=== PATIENT | female | born 1955 | race Two or more races ===

== ENCOUNTER 2025-10-08 10:30 | Inpatient (IN) | payer OTHER ==
[~2025-10-08] VITALS: Ht 30.5 cm; Wt 90.7 kg
[2025-10-08] MEDS ORDERED: TOPROL XL25 M1 (14:46)
[2025-10-08] MEDS ORDERED: ARBLI10 MG/1 ML (14:46)
[2025-10-08] MEDS ORDERED: TIROSINT13 MCG (14:46)
[2025-10-14] MEDS ORDERED: BUPIVACAINE HCL/MPF 0.5% 30ML VIAL ONE (09:30)
[2025-10-14] MEDS ORDERED: VANCOMYCIN HCL 1,000 MG VIAL ONE (09:30)
[2025-10-14] MEDS ORDERED: KETOROLAC TROMETHAMINE 60 MG VIAL IM ONE (09:30)
[2025-10-14] MEDS ORDERED: TRANEXAMIC ACID 100MG/1ML (1000MG) AMPUL ONE (09:31)
[2025-10-14] MEDS ORDERED: LIDOCAINE HCL 1%/EPINEPHRINE 20ML VIAL IJ ONE (09:31)
[2025-10-14] MEDS ORDERED: CEFAZOLIN SODIUM 1,000 MG VIAL ONE (09:31)
[2025-10-14] MEDS ORDERED: MORPHINE SULFATE 4 MG/ML CARTRIDGE IV ONE (10:30)
[2025-10-14] MEDS ORDERED: ONDANSETRON HCL 2 MG/ML VIAL ONE ×2 (13:49→15:13)
[2025-10-14] MEDS ORDERED: ONDANSETRON HCL 2 MG/ML VIAL IV PRN (16:00)
[2025-10-14] MEDS ORDERED: SODIUM CHLORIDE 0.45 % 1,000 ML IV SCH (16:00)
[2025-10-14] MEDS ORDERED: MORPHINE SULFATE 4 MG/ML CARTRIDGE IV PRN (16:00)
[2025-10-14] MEDS ORDERED: OxyCODONE HCL 5 MG TABLET (ROXICODONE) PO PRN (16:00)
[2025-10-14] MEDS ORDERED: GABAPENTIN 300 MG CAPSULE PO SCH (17:00)
[2025-10-14] MEDS ORDERED: CEFAZOLIN SODIUM 1,000 MG VIAL IV SCH (17:00)
[2025-10-14 17:49] VITALS: BP 92/58; O2SAT 95
[2025-10-14] MEDS ORDERED: ACETAMINOPHEN 500 MG GEL..CAP PO SCH (18:00)
[2025-10-15 00:30] VITALS: BP 101/69; O2SAT 99
[2025-10-15 08:01] LABS: BASO % 0.3 % (0.1-1.2); EOS # 0.15 (0.04-0.54); EOS % 1.7 % (0.7-7.0); LYMPH # 1.51 (1.18-3.74); LYMPH % 17.5 % (19.3-53.1); MEAN PLATELET VOLUME 10.10 fl (9.4-12.4); MONO # 0.68 (0.24-0.82); MONO % 7.9 % (4.7-12.5); NEUT # 6.22 (1.56-6.13); NEUT % 72.4 % (34.0-71.1); RED CELL DISTRIBUTION WIDTH 13.3 % (11.6-14.4)
[2025-10-15 08:38] VITALS: BP 94/59; O2SAT 95
[2025-10-15] MEDS ORDERED: APIXABAN 2.5 MG TABLET PO SCH (09:00)
[2025-10-15] MEDS ORDERED: SENNOSIDES 1 TAB TABLET PO SCH (09:00)
[2025-10-15] MEDS ORDERED: ELIQUIS2.5 MG PO (09:08)
[2025-10-15] MEDS ORDERED: DUI500 PO (09:08)
[2025-10-15] MEDS ORDERED: PERCOCET 5-3251 EACH PO (09:08)
[2025-10-15 12:31] LABS: ALT/SGPT 18.0 U/L (12-78); AST/SGOT 19.0 U/L (15-37); BILIRUBIN TOTAL 0.37 mg/dL (0.3-1.2); BUN CREA RATIO 19.0 (7.0-25.0); CREATININE SERUM 0.69 mg/dL (0.55-1.02); GFR 84.36; GLOBULINA 2.6 G/DL (2.4-3.5); GLUCOSE FASTING 128.0 mg/dL (65-100); OSMOLALITY SERUM 283.0 MOSM/KG (275-295)
[2025-10-15 15:55] VITALS: BP 109/48; O2SAT 96
[2025-10-16 02:07] VITALS: BP 115/72; O2SAT 96
[2025-10-16 06:52] LABS: BASO % 0.4 % (0.1-1.2); EOS # 0.23 (0.04-0.54); EOS % 2.5 % (0.7-7.0); LYMPH # 1.54 (1.18-3.74); LYMPH % 16.7 % (19.3-53.1); MEAN PLATELET VOLUME 10.40 fl (9.4-12.4); MONO # 0.68 (0.24-0.82); MONO % 7.4 % (4.7-12.5); NEUT # 6.69 (1.56-6.13); NEUT % 72.7 % (34.0-71.1); RED CELL DISTRIBUTION WIDTH 13.4 % (11.6-14.4)
[2025-10-16 08:00] VITALS: BP 115/71; O2SAT 97
[2025-10-16] MEDS ORDERED: IRON FUM,PS/FOLIC ACID/VITC/B3 1 CAP CAPSULE PO SCH (09:00)
[2025-10-16 16:00] VITALS: BP 111/74; O2SAT 94
== END 2025-10-16 19:07 | DRG 470 ==
LOC: SURH 10-14 07:00 → O/R 10-14 07:00 → SURG 10-14 10:30 → SURH 10-14 13:55 → SURG 10-14 14:00 → SURH 10-16 19:07
PROVIDERS: ADMIT Orthopaedic Surgery; ATTEND Orthopaedic Surgery
PROC: 0MNN0ZZ Release Right Knee Bursa and Ligament, Open Approach (ICD-10-PCS; 2025-10-14)
PROC: 0SUC07Z Supplement Right Knee Joint with Autologous Tissue Substitute, Open Approach (ICD-10-PCS; 2025-10-14)
PROC: 0SRC0J9 Replacement of Right Knee Joint with Synthetic Substitute, Cemented, Open Approach (ICD-10-PCS; principal; 2025-10-14 14:00)
DX: M17.11 Unilateral primary osteoarthritis, right knee (principal); M22.11 Recurrent subluxation of patella, right knee; E66.9 Obesity, unspecified